=== PATIENT | female | born 1960 | race Caucasian/White ===

== ENCOUNTER 2022-04-05 10:10 | Emergency (ER) | payer MEDICARE, SELFPAY ==
[2022-04-05 10:10] VITALS: BP 128/82; PULSE 102; RESP 15; TEMP 36; O2SAT 100; BMI 22.1
--- NOTE | 2022-04-05 10:50 | EKG12_ITS ---
Test Reason : Blood Pressure : / mmHG Vent. Rate : 086 BPM Atrial Rate : 086 BPM P-R Int : 144 ms QRS Dur : 056 ms QT Int : 382 ms P-R-T Axes : 037 027 080 degrees QTc Int : 457 ms Normal sinus rhythm Nonspecific ST and T wave abnormality Abnormal ECG Confirmed by RHIANNA ANTUNEZ, HERIBERTO ([id number]), society editor SUSAN CANNON ([id number]) on 04/07/2022 9:23:08 AM Referred By: NOLAN Confirmed By:HERIBERTO MOCTEZUMA MD
--- NOTE | 2022-04-05 10:51 | ED.VIS.GI ---
HPI HPI - GI History of Present Illness Chief Complaint: Weakness Informant: patient Abdominal Pain/Flank Pain Onset: Days (2) Timing: Intermittent Quality: Cramping Location: - (Lower abdomen) Current Severity: Gone Maximum Severity: Mild Worsened by: Nothing Relieved by: - (Bowel movement) Nausea/Vomiting/Emesis GI Symptom: Positive for Nausea (For the past 5 days) and Vomiting Onset: Yesterday (Vomiting) Quality: Positive for Nonbilious; Negative for Blood streaks, Coffee ground or Hematemesis Diarrhea/Melena/Hematochezia GI Symptom: Positive for Diarrhea; Negative for Melena or Hematochezia Onset: Yesterday Stool Quality: Positive for Watery Severity: Moderate Associated Symptoms Associated Symptoms: Negative for Dysuria, Frequency, Hematuria or Urgency Narrative Narrative: Patient started new diabetes weekly injection, Ozempic, 5 days ago. The next day she was feeling poorly and nauseated. Over the next couple days she started developing diarrhea, intermittent lower abdominal cramping that would resolve after the diarrhea, and starting last night vomiting. She has felt hot and cold with chills, malaise, fatigue, but no fevers when she checked. No known sick contacts. No travel out of the area. No recent antibiotics for any reason. Denies any suspicious food intake. States she has a history of fibromyalgia. States she has been having some exertional chest heaviness last couple days, never 1 resting, which resolves the discomfort and she does not have it while resting here now. [facility] Medical History (Updated 04/05/22 @ 13:[address] Yash Smith MD) Anxiety Atrial fibrillation Depression Diabetes mellitus Fibromyalgia Hypothyroid Home Medications Actos 04/05/22 [History Last Taken Unknown] Ambien 04/05/22 [History Last Taken Unknown] Elavil 04/05/22 [History Last Taken Unknown] Lexapro 04/05/22 [History Last Taken Unknown] Ozempic 04/05/22 [History Last Taken Unknown] Synthroid 04/05/22 [History Last Taken Unknown] glipizide 04/05/22 [History Last Taken Unknown] metformin 04/05/22 [History Last Taken Unknown] metoprolol tartrate 04/05/22 [History Last Taken Unknown] promethazine 25 mg tablet 25 mg PO Q6H PRN PRN Nausea #12 TABLETS 04/05/22 [Rx Last Taken Unknown] Allergy/AdvReac Type Severity Reaction Status Date / Time carisoprodol [From [place]] Allergy Hives Verified 04/05/22 10:12 codeine Allergy Anaphylaxis Verified 04/05/22 10:12 iodine Allergy Anaphylaxis Verified 04/05/22 10:12 Surgical History H/O: hysterectomy Hx of appendectomy Social History Smoking Status: Never smoker ROS ROS ED Constitutional Constitutional ED: Reports chills, fatigue and malaise; Denies fever(s) Eyes Eyes: Denies change in vision or diplopia ENT ENT ED: Denies rhinorrhea or sore throat Cardiovascular Cardiovascular: Reports as per HPI and chest pain; Denies palpitations Respiratory/Chest Respiratory/Chest: Denies cough or dyspnea Gastrointestinal Gastrointestinal: Reports as per HPI, abdominal pain, diarrhea, nausea and vomiting Genitourinary Genitourinary ED: Denies dysuria or hematuria Musculoskeletal Musculoskeletal: Denies back pain or neck pain Integumentary Denies abscess or rash Neurologic Neurologic: Denies headache(s), paresthesias or weakness Psychiatric Psychiatric: Denies anxiety or suicidal thoughts EXAM Physical Exam Const Vital Signs: 04/05/22 10:10 04/05/22 10:39 04/05/22 11:12 Temperature 96.8 F L Temperature Source Temporal Pulse Rate 102 H 91 Respiratory Rate 15 12 Respiratory Effort Normal Non-Labored Respiratory Pattern Normal Blood Pressure 128/82 H 121/66 H Blood Pressure Mean 97 84 Pulse Ox 100 Oxygen Delivery Method Room Air 04/05/22 13:18 Temperature Temperature Source Pulse Rate 86 Respiratory Rate 20 H Respiratory Effort Respiratory Pattern Blood Pressure 114/62 Blood Pressure Mean 79 Pulse Ox 99 Oxygen Delivery Method Room Air Positive well nourished and well developed Constitutional Narrative: Well-appearing in no distress General Appearance ED: well developed and NAD HEENT Reports moist mucous membranes normocephalic and atraumatic Eyes PERRL and EOMs intact bilaterally Neck full ROM and supple Resp normal respiratory effort and clear to auscultation bilaterally Cardio regular rate, regular rhythm and no murmurs Rate: tachycardic GI non-tender and non-distended Auscultation: hyperactive bowel sounds Palpation: soft Back/Spine no CVA tenderness General Back: other FROM Extremity normal to inspection General Extremety ED: Negative for edema, pulses abnormal or tenderness General Extremity: Negative for edema or pulses abnormal Neuro oriented x3, CN's II-XII intact bilaterally and no sensory deficits noted Sensorium / Orientation: awake and alert Motor Exam: strength 5/5 throughout Skin no rashes or lesions noted and no wounds MDM MDM MDM Narrative Medical decision making narrative: Patient did feel little better after IV fluids and Zofran. No vomiting able to tolerate some oral fluids. Her BUN/creatinine are up a little bit, probably due to some mild dehydration. The rest of her work-up is normal including her cardiac work-up. Unknown if this is stable angina or not, but it is concerning enough that she should follow-up with her doctor since she does have risk factors. Heart score: 1, 0, 1, 1, 0 = 3 Hopefully the GI symptoms are related to a viral illness, if that is the case, which I am not able to rule out or rule in, it should be self-limiting. Otherwise she should follow-up with her doctor for that as well. She is comfortable with that plan. Lab Data Attestation: I reviewed the patient's lab results. Labs: Laboratory Results - last 24 hr 04/05/22 04/05/22 04/05/22 10:33 10:45 10:45 WBC 5.7 RBC 4.73 Hgb 13.9 Hct 40.4 MCV 85.4 MCH 29.4 MCHC 34.4 RDW Std Deviation 41.1 RDW Coeff of Mer 13.3 Plt Count 351 MPV 9.5 Immature Gran % (Auto) 0.400 Neut % (Auto) 63.4 Lymph % (Auto) 27.9 [place] % (Auto) 6.9 Eos % (Auto) 0.5 Baso % (Auto) 0.9 Absolute Neuts (auto) 3.6 Absolute Lymphs (auto) 1.58 Nucleated RBC % 0 Sodium 133 L Potassium 4.2 Chloride 97 L Carbon Dioxide 27.0 Anion Gap 9 BUN 20 H Creatinine 1.26 H Estim Creat Clear Calc 39.46 Est GFR (MDRD) Af Amer 55 L Est GFR (MDRD) Non-Af 46 L BUN/Creatinine Ratio 15.9 Glucose 163 H Calcium 9.9 Total Bilirubin 0.60 AST 47 H ALT 49 Alkaline Phosphatase 110 Troponin I High Sens 3 Total Protein 8.0 Albumin 4.0 Globulin 4.0 Albumin/Globulin Ratio 1.0 Lipase 197 POC Glucose 165 H Rhythm Strip Rhythm Strip: Sinus Rhythm Rate: 85 Ectopy: None EKG Initial EKG: Attestation: I personally reviewed and interpreted this EKG as follows: Interpretation: Sinus Rhythm and No Acute Injury Pattern Comments: Normal EKG Discharge Plan Triage Chief Complaint: Weakness ED Provider: Yash Smith Dx/Rx/DC Orders Clinical Impression: Gastroenteritis, Chest pain, exertional Instructions: Viral Gastroenteritis, ED Chest Pain, Uncertain Cause Prescriptions: New promethazine [promethazine] 25 mg tablet 25 mg PO Q6H PRN PRN (Reason: Nausea) Qty: 12 0RF No Action Actos Ambien Elavil Lexapro Ozempic Synthroid glipizide metformin metoprolol tartrate Primary Care Provider: Blaine Leija Referrals: Blaine Leija MD [Primary Care Provider] - As soon as possible (Regarding your chest discomfort, and/or your vomiting and diarrhea if it does not resolve within the next 2 or 3 days) Activity Restrictions/Additional Instructions: If you do not have any issues with taking aspirin, take a baby aspirin daily until you follow-up with your doctor and are told otherwise Disposition Disposition: Home, Self Care
--- NOTE | 2022-04-05 10:54 | NURSING ---
NO OLD EKGS
[2022-04-05 11:00] LABS: Bedside Glucose 165 mg/dL (74-106)
[2022-04-05] MEDS: 0.9% Normal Saline 1,000 ML 1000 ML IV (11:10)
[2022-04-05] MEDS: Ondansetron 4 MG/2 ML Vial IV (11:10)
[2022-04-05 11:12] VITALS: BP 121/66; PULSE 91; RESP 12
[2022-04-05 11:23] LABS: Absolute Lymphocyte Count 1.58 X10^3/uL (0.83-4.51); Absolute Neutrophil Count 3.6 X10^3/uL (2.0-7.7); Basophil# 0.05 X10^3/uL; Basophil% 0.9 % (0-1); Eosinophil# 0.03 X10^3/uL; Eosinophils% 0.5 % (0-5); Hematocrit 40.4 % (37-47); Hemoglobin 13.9 g/dL (12.0-15.0); Lymphocyte # 1.58 X10^3/ul (0.83-4.51); Lymphocyte % 27.9 % (19-41); Mean Corp Hgb Conc 34.4 g/dL (32-36); Mean Corpuscular Hgb 29.4 pg (27.0-32.0); Mean Corpuscular Volume 85.4 fL (81-99); Mean Platelet Vol. 9.5 fl (6.2-12.0); Monocyte# 0.39 X10^3/uL; Monocyte% 6.9 % (0-10); NRBC Flagged by Analyzer 0 % (0-5); Neutrophil # 3.59 X10^3/uL (2.7-7.7); Neutrophil % 63.4 % (47-70); Platelet Count 351 K/mm3 (150-450); RBC Distribution Width CV 13.3 % (11.6-14.6); RBC Distribution Width SD 41.1 fl (35.1-43.9); Red Blood Count 4.73 M/mm3 (4.2-5.4); White Blood Count 5.7 K/mm3 (4.4-11.0)
[2022-04-05 11:38] LABS: AST(SGOT) 47 U/L (15-37); Alanine Aminotransfer ALT/SGPT 49 U/L (13-56); Alkaline Phosphatase 110 U/L (45-117); Anion Gap 9 (5-15); BUN 20 mg/dL (7-18); BUN/Creat Ratio 15.9 RATIO (10-20); Calcium,Total 9.9 mg/dL (8.5-10.1); Chloride 97 mmol/L (98-107); Creatinine, Serum 1.26 mg/dL (0.55-1.02); EST Glomerular Filtration Rate 46 mL/min (>60); Est Glom Filt Rate - Afr Amer 55 mL/min (>60); Estimated Creatinine Clearance 39.46 ml/min; Glucose 163 mg/dL (74-106); Lipase 197 U/L (73-393); Potassium 4.2 mmol/L (3.5-5.1); Sodium Level 133 mmol/L (136-145); Troponin-I HS 3 pg/mL (3.0-54.0)
[2022-04-05 13:18] VITALS: BP 114/62; PULSE 86; RESP 20; O2SAT 99
== END 2022-04-05 13:47 | disposition home or self-care (01) ==
PROVIDERS: Emergency Provider Emergency Medicine; PCP Internal Medicine; Visit Provider Emergency Medicine
DX: K52.9 Noninfective gastroenteritis and colitis, unspecified (principal); E11.9 Type 2 diabetes mellitus without complications; R07.9 Chest pain, unspecified; R53.1 Weakness; Z79.84 Long term (current) use of oral hypoglycemic drugs; Z79.899 Other long term (current) drug therapy
CPT/HCPCS: 80053; 82962; 83690; 84484; 85025; 93005; 96361; 96374; 99283; J7030; A4216; J2405